=== PATIENT | female | born 1960 | race Caucasian/White ===

== ENCOUNTER 2021-08-31 07:47 | Outpatient (REF) | payer OTHER, SELFPAY ==
[2021-08-31 08:30] LABS: Hematocrit 34.7 % (37.0-47.0); Hemoglobin 11.3 g/dl (12.0-16.0); Mean Corpuscular HGB Conc 32.6 g/dl (31.0-35.0); Mean Corpuscular Volume 89.2 fL (80.0-98.0); Mean Platelet Volume 11.2 fL (9.4-12.3); Platelet Count 259 X10*3/uL (160-400); Red Blood Count 3.89 X10*6/uL (4.20-5.50); Red Cell Distribution Width 13.2 % (11.0-16.0)
[2021-08-31 09:00] LABS: Alanine Aminotransferase 13 U/L (0-31); Albumin Level 3.8 g/dL (3.5-5.0); Alkaline Phosphatase 41 U/L (39-117); Anion Gap 13 (12-20); Aspartate Amino Transferase 19 U/L (5-31); Bilirubin Total 0.5 mg/dL (0.0-1.0); Blood Urea Nitrogen 10 mg/dL (9-16); C Reactive Protein 0.02 mg/dL (< or = 0.50); Carbon Dioxide 23 mmol/L (22-29); Chloride 108 mmol/L (96-108); Cholesterol 166 mg/dL; Estimated Glomerular Filt Rate > 60; Gamma Glutamyl Transpeptidase 15 U/L (7-33); Glucose Random 89 mg/dL (60-115); HDL Cholesterol 60 mg/dL; Iron 55 mcg/dL (30-160); LDL Cholesterol Calculated 98 mg/dl; Percent Iron Saturation 19 % (15-50); Potassium 4.2 mmol/L (3.3-5.1); Sodium 140 mmol/L (135-145); Total Iron Binding Capacity 283 mcg/dL (228-428); Total Protein 6.3 g/dL (6.5-8.0); Triglycerides 40 mg/dL; Unsaturated Iron Binding 228 ug/dL
[2021-08-31 09:24] LABS: Ferritin 27 ng/mL (10-250); Free T4 (Free Thyroxine) 1.16 ng/dL (0.71-1.85); Thyroid Stimulating Hormone 0.01 uIU/mL (0.32-4.0); Vitamin D 25-OH Total 40.7 ng/mL (>30)
[2021-08-31 09:31] LABS: Insulin 3 uU/mL (2-29)
[2021-09-01 12:23] LABS: Triiodothyronine T3 Free 2.7 pg/mL (2.3-4.2)
[2021-09-01 12:26] LABS: DHEA Sulfate 68 mcg/dL (9-118); Follicle Stimulating Hormone 88.2 mIU/mL; Lutenizing Hormone 41.7 mIU/mL
[2021-09-01 13:37] LABS: Thyroglobulin Antibodies 3 IU/mL (< or = 1); Thyroid Peroxidase Antibodies 90 IU/mL (<9)
[2021-09-01 18:41] LABS: Homocysteine 7.2 umol/L (<10.4)
[2021-09-04 15:02] LABS: Triiodothyronine T3 Reverse 16 ng/dL (8-25)
[2021-09-04 18:06] LABS: Testosterone, Free 2.9 pg/mL (0.1-6.4); Testosterone, Total 43 ng/dL (2-45)
[2021-09-05 04:27] LABS: Estradiol Free 0.08 pg/mL; Estradiol, Ultrasensitive 6 pg/mL
[2021-09-05 13:42] LABS: Methylmalonic Acid 143 nmol/L (87-318)
[2021-09-05 14:35] LABS: Progesterone 1.4 ng/mL
[2021-09-06 02:27] LABS: Dihydrotestosterone 18 ng/dL (< OR = 20)
[2021-09-08 09:42] LABS: Calcium (PTHI) 9.1 mg/dL (8.6-10.4)
== END 2021-08-31 07:48 | disposition home or self-care (01) ==
LOC: HO.LAB 07:47
PROVIDERS: Visit Provider Internal Medicine
DX: E03.9 Hypothyroidism, unspecified (principal); E11.9 Type 2 diabetes mellitus without complications; E55.9 Vitamin D deficiency, unspecified; D64.9 Anemia, unspecified; E78.5 Hyperlipidemia, unspecified; K76.0 Fatty (change of) liver, not elsewhere classified; R53.83 Other fatigue
CPT/HCPCS: 36415; 80053; 80061; 82306; 82627; 82642; 82670; 82681; 82728; 82977; 83001; 83002; 83090; 83525; 83540; 83921; 83970; 84144; 84402; 84403; 84439; 84443; 84481; 84482; 85027; 86140; 86376; 86800